=== PATIENT | female | born 2000 | race Caucasian/White ===

== ENCOUNTER 2022-02-15 19:44 | Inpatient (IN) ==
[2022-02-15] MEDS ORDERED: CARBOPROST TROMETHAMINE 250 MCG/ML AMP IM PRN (20:29)
[2022-02-15] MEDS ORDERED: BUTORPHANOL 2 MG/ML VIAL IV PRN (20:29)
[2022-02-15] MEDS ORDERED: OXYTOCIN/LR 20 UNIT/1,000 ML BAG IV ONE (20:29)
[2022-02-15] MEDS ORDERED: TRANEXAMIC ACID 1,000 MG in SODIUM CHLORIDE 0.9% 100 ML IV PRN (20:29)
[2022-02-15] MEDS ORDERED: miSOPROStoL 200 MCG TABLET RECTAL PRN (20:29)
[2022-02-15] MEDS ORDERED: METHYLERGONOVINE 0.2 MG/1 ML AMP IM PRN (20:29)
[2022-02-15 20:46] LABS: Basophils % 0.2 % (0.0-0.8); Eosinophils # 0.1 10*3/uL (0.0-0.87); Eosinophils % 0.5 % (0.00-10.9); Hematocrit 34.4 VOL% (35.7-47.0); Hemoglobin 11.5 GM/DL (12.0-16.0); Immature Granulocytes % 0.7 %; Immature Granulocytes Absolute 0.08 #; Lymphocytes # 2.5 10*3/uL (1.4-4.0); Lymphocytes % 22.7 % (21.3-54.2); Mean Corpuscular HGB Conc 33.4 GM/DL (32-36); Mean Corpuscular Volume 88.4 FL (87-102); Mean Platelet Volume 11.9 FL (9.6-12.0); Monocytes # 0.6 10*3/uL (0.11-0.8); Monocytes % 5.6 % (1.7-12.7); Neutrophils % 70.3 % (38.7-73.9); Platelet Count 258 T/CUMM (130-400); Red Blood Count 3.89 MC/CUMM (3.8-5.5); Red Cell Distribution Width 13.2 % (9.3-17.3)
[2022-02-15] MEDS ORDERED: LABETALOL 100 MG TABLET PO SCH (21:00)
[2022-02-15 21:14] LABS: INR 0.9; PT Patient Result 9.8 SECS (10.1-12.1); Partial Thromboplastin Time 24.7 SECS (23.7-32.9)
[2022-02-15 21:16] LABS: Alanine Aminotransferase 14 U/L (13-56); Albumin 2.6 G/DL (3.4-5.0); Alkaline Phosphatase 234 U/L (45-117); Aspartate Amino Transferase 16 U/L (0-37); Bilirubin,Direct < 0.100 MG/DL (0.0-0.20); Bilirubin,Total < 0.39 MG/DL (0.20-1.00); Blood Urea Nitrogen 9 MG/DL (7-18); Calcium 8.7 MG/DL (8.5-10.1); Carbon Dioxide 19 MMOL/L (21-32); Chloride 111 MMOL/L (98-107); Glucose 122 MG/DL (74-106); Osmolality,Calculated 278.4 MOS/KG (273-304); Potassium 3.6 MMOL/L (3.5-5.1); Sodium 140 MMOL/L (136-145); Total Protein 6.7 G/DL (6.4-8.2); Uric Acid 4.5 MG/DL (2.6-6.0)
[2022-02-15 21:55] LABS: Bacteria,Urine Occasional /HPF (Few); Bilirubin,Urine Negative (Negative); Blood, Urine Negative (Negative); Glucose,Urine (UA) Negative (Negative); Ketones,Urine Negative (Negative); Mucus,Urine Moderate /LPF (Occasional); Nitrite,Urine Negative (Negative); Protein,Urine Negative (Negative); RBC,Urine 1 /HPF (0-4); Squamous Epithelial Cell,Urine Occasional /HPF (0-10); Urine Appearance Clear (Clear); Urine Color Yellow (Yellow); Urine Specific Gravity >= 1.030 (1.001-1.035); Urine Urobilinogen 0.2 eU/dL (<2.0); Urine pH 5.5 (4.5-8.0)
[2022-02-15 22:18] LABS: Protein/Creatinine Ratio,Urine 0.1 RATIO
[2022-02-15 22:58] LABS: Barbiturates Screen,Urine Negative (Negative); Benzodiazepines Screen,Urine Negative (Negative); Cannabinoid Screen,Urine Negative (Negative); Opiate Screen,Urine Negative (Negative); Phencyclidine Screen,Urine Negative (Negative)
[2022-02-16] MEDS: ONDANSETRON 4 MG/2 ML VIAL IV PRN ×2 (03:23→09:32)
[2022-02-16] MEDS: MEPERIDINE 25 MG/1 ML VIAL IV PRN (03:30)
[2022-02-16] MEDS: LABETALOL 100 MG TABLET PO SCH ×3 (07:38→23:09)
[2022-02-16] MEDS: LACTATED RINGERS 1,000 ML IV SCH (11:15)
[2022-02-17] MEDS ORDERED: ZALEPLON 5 MG CAPSULE PO PRN (00:43)
[2022-02-17] MEDS ORDERED: OXYTOCIN/LR 20 UNIT/1,000 ML BAG IV SCH (04:30)
[2022-02-17] MEDS: LACTATED RINGERS 1,000 ML IV SCH ×2 (04:37→15:07)
[2022-02-17] MEDS: LABETALOL 100 MG TABLET PO SCH ×2 (07:41→15:47)
[2022-02-17] MEDS ORDERED: NALOXONE 0.4 MG/ML VIAL IV PRN (08:58)
[2022-02-17] MEDS ORDERED: hydrOXYzine HCL 25 MG/1 ML VIAL IM PRN (08:58)
[2022-02-17] MEDS ORDERED: ePHEDrine 50 MG/ML VIAL IV PRN (08:58)
[2022-02-17] MEDS ORDERED: CITRIC ACID/SODIUM CITRATE 30 ML UDCUP PO ONE (08:58)
[2022-02-17] MEDS ORDERED: LACTATED RINGERS 1,000 ML IV ONE (08:58)
[2022-02-17] MEDS ORDERED: diphenhydrAMINE 50 MG/1 ML VIAL IV PRN ×2 (08:58)
[2022-02-17] MEDS ORDERED: FAMOTIDINE 20 MG/2 ML VIAL IV ONE (08:58)
[2022-02-17] MEDS ORDERED: PROMETHAZINE 25 MG/1 ML VIAL IM ONE (08:58)
[2022-02-17] MEDS: fentaNYL 2 MCG/ROPIV 0.2% EPID 100 ML EPIDURAL SCH ×2 (10:04→17:40)
[2022-02-17 11:56] LABS: Mucus,Urine Few /LPF (Occasional); RBC,Urine 1 /HPF (0-4); Urine Appearance Clear (Clear); Urine Color Yellow (Yellow)
[2022-02-17 11:57] LABS: Bilirubin,Urine Negative (Negative); Blood, Urine Negative (Negative); Glucose,Urine (UA) Negative (Negative); Ketones,Urine Negative (Negative); Nitrite,Urine Negative (Negative); Protein,Urine Negative (Negative); Urine Specific Gravity 1.025 (1.001-1.035); Urine Urobilinogen 0.2 eU/dL (<2.0)
[2022-02-17] MEDS: MEPERIDINE 25 MG/1 ML VIAL IV PRN (19:48)
[2022-02-17] MEDS: ONDANSETRON 4 MG/2 ML VIAL IV PRN (19:54)
[2022-02-17 20:37] LABS: Cord Venous Blood HCO3 18.6 MMOL/L; Cord Venous Blood PO2 26.1
[2022-02-17] MEDS ORDERED: ONDANSETRON 4 MG/2 ML VIAL IV PRN (22:09)
[2022-02-17] MEDS ORDERED: WITCH HAZEL PADS 100/JAR TOP PRN (22:09)
[2022-02-17] MEDS ORDERED: BENZOCAINE 20%/MENTHOL 0.5% SPRAY 56 GM CAN TOP PRN (22:09)
[2022-02-17] MEDS ORDERED: ACETAMINOPHEN 325 MG TABLET PO PRN (22:09)
[2022-02-17] MEDS ORDERED: LANOLIN 50% CREAM 0.3 OZ TUBE TOP PRN (22:09)
[2022-02-17] MEDS ORDERED: BISACODYL 10 MG SUPP RECTAL PRN (22:09)
[2022-02-17] MEDS ORDERED: HYDROCORTISONE 2.5% RECTAL CREAM 30 GM TUBE TOP PRN (22:09)
[2022-02-17] MEDS ORDERED: OXYTOCIN/LR 20 UNIT/1,000 ML BAG IV ONE (22:09)
[2022-02-17] MEDS ORDERED: oxyCODONE/ACETAMINOPHEN 5-325 MG TABLET PO PRN (22:09)
[2022-02-17] MEDS ORDERED: DIPH/TET/ACEL PERT BOOSTER VACCINE 0.5 ML VIAL IM ONE (22:30)
[2022-02-17] MEDS ORDERED: RHO(D) IMMUNE GLOBULIN 300 MCG SYRINGE IM ONE (22:30)
[2022-02-17] MEDS ORDERED: LABETALOL 100 MG TABLET PO SCH (22:30)
[2022-02-17] MEDS ORDERED: MEASLES/MUMPS/RUBELLA VACCINE 0.5 ML VIAL SUBCUT ONE (22:30)
[2022-02-18] MEDS: IBUPROFEN 800 MG TABLET PO PRN ×3 (04:21→20:41)
[2022-02-18 05:03] LABS: Basophils # 0.1 10*3/uL (0.0-0.2); Basophils % 0.3 % (0.0-0.8); Eosinophils % 0.1 % (0.00-10.9); Hematocrit 34.7 VOL% (35.7-47.0); Hemoglobin 11.5 GM/DL (12.0-16.0); Immature Granulocytes % 0.7 %; Immature Granulocytes Absolute 0.11 #; Lymphocytes # 2.2 10*3/uL (1.4-4.0); Lymphocytes % 14.1 % (21.3-54.2); Mean Corpuscular HGB Conc 33.1 GM/DL (32-36); Mean Corpuscular Volume 89.7 FL (87-102); Mean Platelet Volume 11.8 FL (9.6-12.0); Monocytes # 0.7 10*3/uL (0.11-0.8); Monocytes % 4.8 % (1.7-12.7); Platelet Count 243 T/CUMM (130-400); Red Blood Count 3.87 MC/CUMM (3.8-5.5); Red Cell Distribution Width 13.4 % (9.3-17.3); White Blood Count 15.2 T/CUMM (4-12)
[2022-02-18] MEDS: oxyCODONE/ACETAMINOPHEN 5-325 MG TABLET PO PRN ×2 (08:39→22:20)
[2022-02-18] MEDS: DOCUSATE SODIUM 100 MG CAPSULE PO SCH ×2 (08:40→20:41)
[2022-02-19 07:43] VITALS: BP 101/59
[2022-02-19] MEDS: DOCUSATE SODIUM 100 MG CAPSULE PO SCH (10:00)
[2022-02-19] MEDS: IBUPROFEN 800 MG TABLET PO PRN (10:00)
[2022-02-19] MEDS: oxyCODONE/ACETAMINOPHEN 5-325 MG TABLET PO PRN (11:01)
[2022-02-19] MEDS ORDERED: FUROSEMIDE 20 MG TABLET PO ONE (12:30)
== END 2022-02-19 14:20 | disposition home or self-care (01) | DRG 560 ==
LOC: N.LDOUT 19:44 → N.LD 19:47 → N.OB 02-18 11:55
PROVIDERS: ADMIT Specialist; ATTEND Specialist